=== PATIENT | female | born 1990 | race Asian ===

== ENCOUNTER 2017-04-19 12:14 | Observation (INO) | payer OTHER ==
[2017-04-19] MEDS ORDERED: ACETAMINOPHEN 325 MG TABLET PO PRN (13:23)
[2017-04-19] MEDS ORDERED: DIPHENHYDRAMINE HCL 25 MG CAPSULE PO PRN (13:23)
[2017-04-19 14:10] LABS: HEMOGLOBIN 9.1 g/dL (12.0-15.5); HGB HCT DIFFERENCE 0.3; MEAN CORPUSCULAR HEMOGLOBIN 29.9 pg (27.0-33.4); MEAN CORPUSCULAR HGB CONC 33.8 g/dL (32.0-36.0); MEAN CORPUSCULAR VOLUME 88 fl (80-97); RED BLOOD COUNT 3.06 10^6/uL (3.72-5.28); RED CELL DISTRIBUTION WIDTH 14.2 % (11.5-14.0); WHITE BLOOD COUNT 6.3 10^3/uL (4.0-10.5)
[2017-04-19 14:40] LABS: ALANINE AMINOTRANSFERASE 32 U/L (9-52); ALBUMIN 2.7 g/dL (3.5-5.0); ALKALINE PHOSPHATASE 164 U/L (38-126); ANION GAP 6 (5-19); ASPARTATE AMINO TRANSFERASE 24 U/L (14-36); BILIRUBIN,DIRECT 0.3 mg/dL (0.0-0.4); BILIRUBIN,TOTAL 0.6 mg/dL (0.2-1.3); BLOOD UREA NITROGEN 5 mg/dL (7-20); CALCIUM 8.2 mg/dL (8.4-10.2); CARBON DIOXIDE 26 mmol/L (22-30); CHLORIDE 105 mmol/L (98-107); CREATININE RESULT 0.48 mg/dL (0.52-1.25); GLUCOSE 98 mg/dL (75-110); POTASSIUM 3.3 mmol/L (3.6-5.0); SODIUM 136.6 mmol/L (137-145); TOTAL PROTEIN 5.5 g/dL (6.3-8.2)
[2017-04-19] MEDS ORDERED: OXYCODONE-ACETAMINOPHEN 5-325 MG TABLET PO PRN ×2 (14:41→14:42)
[2017-04-19] MEDS: AMPICILLIN SODIUM/SULBACTAM NA 3 GM in NORMAL SALINE 100 ML IV SCH ×2 (17:59→23:31)
[2017-04-19] MEDS: RINGERS SOLUTION,LACTATED 1,000 ML IV PRN ×3 (18:00→23:32)
[2017-04-20] MEDS ORDERED: DIPHENHYDRAMINE HCL 50 MG/ML VIAL IV ONE (04:45)
--- NOTE | 2017-04-20 05:36 | PDOC PROGRESS REPORT ---
Subjective Progress Note for:: 04/20/17 Subjective:: Generalized itching, rash over abd and chest, increasing edema. Physical Exam - Physical Exam Vital Signs: Temp Pulse Resp BP Pulse Ox 98.5 F 113 H 18 125/67 100 04/20/17 04:10 04/20/17 04:10 04/20/17 04:10 04/20/17 04:10 04/20/17 04:10 Intake & Output 04/18/17 04/19/17 04/20/17 06:59 06:59 06:59 Output Total 400 Balance -400 Weight 55.8 kg General appearance: PRESENT: no acute distress, well-developed, well-nourished Head exam: PRESENT: atraumatic, normocephalic Respiratory exam: PRESENT: clear to auscultation angelina, symmetrical, unlabored. ABSENT: retraction, rhonchi, stridor Cardiovascular exam: PRESENT: tachycardia. ABSENT: diastolic murmur, rubs, systolic murmur Pulses: PRESENT: normal dorsalis pedis pul, +2 pedal pulses bilateral Vascular exam: PRESENT: normal capillary refill GI/Abdominal exam: PRESENT: normal bowel sounds, soft, other - incision c/d/i. ABSENT: distended, guarding, mass, organolmegaly, rebound, tenderness Rectal exam: PRESENT: deferred Extremities exam: PRESENT: full ROM. ABSENT: calf tenderness, clubbing, pedal edema Neurological exam: PRESENT: alert, awake, oriented to person, oriented to place , oriented to time, oriented to situation, CN II-XII grossly intact. ABSENT: motor sensory deficit Psychiatric exam: PRESENT: appropriate affect, normal mood. ABSENT: homicidal ideation, suicidal ideation Skin exam: PRESENT: dry, intact, warm. ABSENT: cyanosis, rash Result Laboratory Results: 04/19/17 13:40 04/19/17 13:40 04/19/17 04/19/17 04/19/17 13:40 13:40 13:40 WBC 6.3 RBC 3.06 L Hgb 9.1 L Hct 27.0 L MCV 88 MCH 29.9 MCHC 33.8 RDW 14.2 H Plt Count 240 Sodium 136.6 L Potassium 3.3 L Chloride 105 Carbon Dioxide 26 Anion Gap 6 BUN 5 L Creatinine 0.48 L Est GFR ( Amer) > 60 Est GFR (Non-Af Amer) > 60 Glucose 98 Lactic Acid 1.8 Calcium 8.2 L Total Bilirubin 0.6 AST 24 ALT 32 Alkaline Phosphatase 164 H Total Protein 5.5 L Albumin 2.7 L Assessment & Plan - Diagnosis (1) Rheumatoid arthritis Qualifiers: Rheumatoid factor presence: unspecified presence Laterality: unspecified laterality Is this a current diagnosis for this admission?: Yes Plan: Pt recently from c/s on 04/16 after presenting in labor. SHe has known RA and was recommended to go home on prednisone. She was discharged on Sunday. She presented to the office and saw Dr. Torres yesterday who readmitted the patient due to possible pp endomyometritis - presenting symptom was rash and fever. Incision was c/d/i and no e/o erythema or induration. However pt had a rash on abd (not involving incision) and chest. 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 I requested the RN give her IV Benadryl and prednisone (was on 5mg but admitting provider asked pt to stop medication). Pt and in the room and attempted to explain the importance of anti- inflammatory to stop reaction (either to meds or beginning of other inflammatory process such as SJS). They refuse all medications. Called Hospitalist for consult and 2nd opinion - because if this is the beginning of SJS then we need to transfer her to tertiary care facility. Pt and state they never actually followed up with [facility]in [facility] here - they were only seen in [facility] before they moved here. Of note this hospital does not have a [facility] or Derm to see patient. (2) Delivery by emergency caesarean section Is this a current diagnosis for this admission?: Yes Plan: S/p Primary C/S on Monday 04/16 for Arrest of Dilation and NRFHTs - Time Time Spent with patient: 15-24 minutes Medications reviewed and adjusted accordingly: Yes Anticipated discharge: Home Within: within 48 hours - Inpatient Certification Based on my medical assessment, after consideration of the patient's comorbidities, presenting symptoms, or acuity I expect that the services needed warrant INPATIENT care.: Yes I certify that my determination is in accordance with my understanding of Medicare's requirements for reasonable and necessary INPATIENT services [42 CFR 412.3e].: Yes Medical Necessity: Need Close Monitoring Due to Risk of Patient Decompensation, Risk of Complication if Not Cared For in Hospital Post Hospital Care: D/C Director Of Ancillary Services Documentation
[2017-04-20] MEDS: AMPICILLIN SODIUM/SULBACTAM NA 3 GM in NORMAL SALINE 100 ML IV SCH (06:07)
--- NOTE | 2017-04-20 06:59 | PDOC CONSULTATION ---
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 Patient has been discussed with consulting physician, Dr. Yuki Fraga, staff skeins yarn examiner, who evaluated the patient. Patient is status post on Sunday of this week. Received a perioperative dose of Ancef. Discharged home 2 days later. Was seen back in the office yesterday by Dr Torres, with complaints of fever. Suspicion at that time a possible endometritis. Patient has since received 2 doses of Unasyn. Over the last several hours, patient has been complaining of mild swelling of her limbs, slight reddening of the skin, in particular on her abdomen and extremities, continued low-grade fever, and now generalized pruritus. Patient states this is quite similar to the presentation that preceded her episode of Freeman-Gideon syndrome last year. Dr. Fraga has recommended both Benadryl and initially IV and then p.o. steroids to the patient. However, patient has steadfastly refused these medications. Hospitalist service consulted concerning the etiology of her rash and complaints. Dictation via voice recognition software. Laboratory results are listed in [facility] and are reviewed. Repeat labs ordered. Social history/personal habits: . 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 No use of alcohol tobacco or illicit drugs. Allergies/adverse reactions are listed in [facility] and are reviewed. Home medications initially autopopulated into [employer] may not accurately reflect patient's true medications, dosages, and/or frequencies. operating room surgical technologist to reconcile medications. Patient states she currently is only taking prednisone 5 mg a day, along with vitamins. REVIEW OF SYSTEMS: Constitutional: See history and present illness. Eyes: No vision complaints. ENT: No swallowing problems or complaints. Denies hearing loss. Pulmonary: No current complaints. Cardiovascular: No current complaints, including chest pain. Gastrointestinal: No current complaints, including nausea or vomiting. Skin: See history and present illness. Hematologic: Denies easy bruising. Neurologic: No current complaints, including numbness or tingling. Musculoskeletal: See history and present illness. Psychiatric: Denies anxiety or depression. Endocrine: No current complaints, including polyuria. Genitourinary: No current complaints, including dysuria. PHYSICAL EXAMINATION: 5 feet 3 inches tall. 55.8 kg. BMI 21.8 kg/m. Temperature 98.5. Temperature maximum 99.4 at 3:18 PM yesterday afternoon. Pulse 113 and regular. Blood pressure 125/67. Respirations are 18 and unlabored. 100% saturation on room air. Well-nourished well-developed young [place] female appearing approximately her stated age. Pleasant awake alert and cooperative, although appears slightly fatigued, and to feel a bit under the weather, so to speak. Mildly anxious, without agitation. is present at her side; patient approves. Patient understands Liberian well, speaks same relatively easily, with occasionally interpreting terms/phrases for patient. speaks/understands Liberian without difficulty. Female floor nurse Violetta is present, along with visit by Dr. Fraga. Skin is warm and dry. No subcutaneous nodules palpated. Examination of skin surfaces reveals mild erythema involving the anterior abdominal wall, less so on the extensor surfaces of lower extremities and flexor surfaces of the upper extremities. Much less involvement of the skin of back. No blisters or wheals. No nodules. Scattered small areas of excoriation from patient scratching. ENT: Hearing grossly normal to normal conversation. Tongue midline on protrusion pink and slightly tacky. No evidence of mucocutaneous involvement with rash in nose or oral cavity. Perhaps very mild facial swelling, confirmed by Dr. Fraga. Eyes: No scleral icterus. Pupils equal and reactive to light at 4 mm. [place] conjunctivae. Neck is supple and nontender to gentle active range of motion and palpation. Midline trachea. No palpable thyroid nodule mass enlargement or tenderness. Lymphatic: No palpable cervical or clavicular nodes. Neck and lymphatic exams limited by patient body habitus. Psychiatric: Reasonable insight into acute and chronic medical issues. Oriented to time location and why here. Lungs: Auscultation reveals clear and equal breath sounds bilaterally. No use of accessory respiratory muscles. Cardiovascular: Heart regular rate and rhythm, without gallop murmur or rub. No carotid or abdominal aortic bruits. No ankle or pedal edema. Faintly palpable dorsalis pedis pulses. Abdomen:soft slightly distended nontender with positive bowel sounds. Unable to adequately evaluate abdomen for masses or organomegaly due to distention. C- section incision with Steri-Strips in place appears to be healing nicely. Extremities: Feet are warm and dry. No calf tenderness to compression. Gentle manipulation of lower extremities fails to reveal any obvious evidence of injury or instability to knees hips or ankles. Very mild soft tissue swelling of upper and lower extremities, again confirmed by Dr. Fraga. Neurologic: Moves all 4 extremities grossly normally. Patellar reflexes absent. Absent Babinski. Light touch is intact at feet. Dorsiflexion and plantarflexion of feet 5 / 5 and symmetric. Past Medical History Cardiac Medical History: Denies: Atrial Fibrillation, Congestive Heart Failure, Coronary Artery Disease, DVT, Myocardial Infarction, Hyperlipidema, Hypertension, Pulmonary Embolism Pulmonary Medical History: Denies: Asthma, Chronic Obstructive Pulmonary Disease (COPD), Sleep Apnea EENT Medical History: Denies: Eyes, Ears, Throat Neurological Medical History: Denies: Hemorrhagic CVA, Ischemic CVA, Seizures Endocrine Medical History: Denies: Diabetes Mellitus Type 1, Diabetes Mellitus Type 2, Hyperthyroidism, Hypothyroidism Renal/ Medical History: Reports: None GI Medical History: Denies: Cirrhosis, Gastroesophageal Reflux Disease, Hepatitis, Peptic Ulcer Disease Musculoskeltal Medical History: Reports: Arthritis - Rheumatoid Skin Medical History: Reports: Other - Freeman-Gideon syndrome, secondary to sulfa, February 2016 Psychiatric Medical History: Denies: Alcohol Dependency, Depression, General Anxiety Disorder, Substance Abuse, Tobacco Dependency Hematology: Reports: None Infectious Medical History: Denies: Hepatitis B, Hepatitis C Past Surgical History Past Surgical History: Reports: Section Social History Information Source: Patient, Emergency Med Personnel, [facility] Records Lives with: Spouse/Significant other Smoking Status: Unknown if Ever Smoked Frequency of Alcohol Use: None Hx Recreational Drug Use: No Drugs: None Hx Prescription Drug Abuse: No - Advance Directive Resuscitation Status: Full Code Surrogate healthcare decision maker:: Family History Parental Family History Reviewed: Yes - Parents alive and healthy Children Family History Reviewed: Yes - Healthy Sibling(s) Family History Reviewed.: Yes - Healthy Medication/Allergy Home Medications: RX: Pnv No.122/Iron/Folic Acid [ Multi Tablet] 1 each PO DAILY 04/16/17 RX: Docusate Sodium [Colace 100 mg Capsule] 100 mg PO BID #60 capsule 04/18/17 RX: Ibuprofen [Motrin 800 mg Tablet] 800 mg PO Q6A #60 tablet 04/18/17 RX: Oxycodone HCl/Acetaminophen [Percocet 5-325 mg Tablet] 2 tab PO Q4HP PRN # 30 tablet 04/18/17 Allergies/Adverse Reactions: sulfasalazine [From Azulfidine] Allergy (Severe, Verified 04/19/17 21:37) Physical Exam Vital Signs: Temp Pulse Resp BP Pulse Ox 98.5 F 113 H 18 125/67 100 04/20/17 04:10 04/20/17 04:10 04/20/17 04:10 04/20/17 04:10 04/20/17 04:10 Intake & Output 04/19/17 04/20/17 04/21/17 00:59 00:59 00:59 Output Total 400 900 Balance -400 -900 Weight 55.8 kg Results Laboratory Results: 04/19/17 13:40 04/19/17 13:40 04/19/17 04/19/17 04/19/17 13:40 13:40 13:40 WBC 6.3 RBC 3.06 L Hgb 9.1 L Hct 27.0 L MCV 88 MCH 29.9 MCHC 33.8 RDW 14.2 H Plt Count 240 Sodium 136.6 L Potassium 3.3 L Chloride 105 Carbon Dioxide 26 Anion Gap 6 BUN 5 L Creatinine 0.48 L Est GFR ( Amer) > 60 Est GFR (Non-Af Amer) > 60 Glucose 98 Lactic Acid 1.8 Calcium 8.2 L Total Bilirubin 0.6 AST 24 ALT 32 Alkaline Phosphatase 164 H Total Protein 5.5 L Albumin 2.7 L Assessment & Plan - Diagnosis (1) Immunosuppressed status Is this a current diagnosis for this admission?: Yes (2) Noncompliance Is this a current diagnosis for this admission?: Yes (3) History of Freeman-Gideon toxic epidermal necrolysis overlap syndrome Is this a current diagnosis for this admission?: Yes (4) Fever Qualifiers: Fever type: unspecified Qualified Code(s): R50.9 - Fever, unspecified Is this a current diagnosis for this admission?: Yes (5) Pruritus Is this a current diagnosis for this admission?: Yes (6) Rash Is this a current diagnosis for this admission?: Yes Plan: Suspicion for possible early Freeman-Gideon syndrome, confirmed by both patient , along with Dr. Fraga, who has managed similar patients in the past. Patient still resistant to taking both steroids and Benadryl. Dr. Fraga stated she will contact the appropriate service at [facility] for further advice and input. Repeat labs ordered this morning. Blood and urine cultures have already been obtained. 50 minutes spent in evaluation management of patient. (7) Rheumatoid arthritis Qualifiers: Rheumatoid factor presence: unspecified presence Laterality: unspecified laterality Is this a current diagnosis for this admission?: Yes - Plan Summary Plan Summary: Thank you for asking us see this unfortunate patient. We will follow-up morning labs and overall course.
[2017-04-20 07:09] LABS: ALANINE AMINOTRANSFERASE 27 U/L (9-52); ALBUMIN 2.3 g/dL (3.5-5.0); ALKALINE PHOSPHATASE 126 U/L (38-126); ASPARTATE AMINO TRANSFERASE 19 U/L (14-36); BILIRUBIN,DIRECT 0.3 mg/dL (0.0-0.4); BILIRUBIN,TOTAL 0.7 mg/dL (0.2-1.3); BLOOD UREA NITROGEN 6 mg/dL (7-20); CALCIUM 8.1 mg/dL (8.4-10.2); CHLORIDE 107 mmol/L (98-107); CREATININE RESULT 0.42 mg/dL (0.52-1.25); GLUCOSE 88 mg/dL (75-110); MAGNESIUM 1.4 mg/dL (1.6-2.3); POTASSIUM 3.1 mmol/L (3.6-5.0); TOTAL PROTEIN 4.8 g/dL (6.3-8.2)
[2017-04-20 07:17] LABS: ANION GAP 5 (5-19); CARBON DIOXIDE 27 mmol/L (22-30); SODIUM 138.9 mmol/L (137-145)
[2017-04-20 07:22] LABS: HEMATOCRIT 26.8 % (36.0-47.0); HEMOGLOBIN 9.2 g/dL (12.0-15.5); HGB HCT DIFFERENCE 0.8; MEAN CORPUSCULAR HGB CONC 34.3 g/dL (32.0-36.0); MEAN CORPUSCULAR VOLUME 88 fl (80-97); RED BLOOD COUNT 3.07 10^6/uL (3.72-5.28); RED CELL DISTRIBUTION WIDTH 14.2 % (11.5-14.0); WHITE BLOOD COUNT 5.6 10^3/uL (4.0-10.5)
[2017-04-20 07:37] LABS: BAND NEUTROPHILS % (MANUAL) 3 % (3-5); BASOPHILS % (MANUAL) 0 % (0-2); EOSINOPHILS % (MANUAL) 4 % (0-6); LYMPHOCYTES % (MANUAL) 7 % (13-45); NUCLEATED RED BLOOD CELLS 1 /100 WBC (0); TOTAL CELLS COUNTED 100
[2017-04-20 07:39] LABS: OVALOCYTES SLIGHT; POIKILOCYTOSIS SLIGHT; TEAR DROP CELLS SLIGHT
[2017-04-20] MEDS ORDERED: POTASSIUM CHLORIDE 10 MEQ TABLET.SA PO ONE (07:49)
[2017-04-20] MEDS ORDERED: HYDROCORTISONE 1% CREAM 28.35 GM TP PRN (08:51)
--- NOTE | 2017-04-20 16:02 | PDOC DISCHARGE SUMMARY ---
General - Admit/Disc Date/PCP Admission Date/Primary Care Provider: 04/19/17 12:14 Discharge Date: 04/20/17 - Discharge Diagnosis (1) Pruritus Is this a current diagnosis for this admission?: Yes (2) Rash Is this a current diagnosis for this admission?: Yes (3) History of Freeman-Gideon toxic epidermal necrolysis overlap syndrome Is this a current diagnosis for this admission?: Yes (4) Rheumatoid arthritis Is this a current diagnosis for this admission?: Yes - Additional Information Resuscitation Status: Full Code Home Medications: Pnv No.122/Iron/Folic Acid [ Multi Tablet] 1 each PO DAILY 04/16/17 Docusate Sodium [Colace 100 mg Capsule] 100 mg PO BID #60 capsule 04/18/17 Ibuprofen [Motrin 800 mg Tablet] 800 mg PO Q6A #60 tablet 04/18/17 Oxycodone HCl/Acetaminophen [Percocet 5-325 mg Tablet] 2 tab PO Q4HP PRN #30 tablet 04/18/17 History of Present Illness History of Present Illness: LESLIE RUBALCAVA is a 26 year old female Hospital Course Hospital Course: unasyn stopped d/t rash development. patient started on hydrocortisone cream today and did well with quick resolution of rash and puritis. Requesting discharge home. Indicates feeling much better than prior to admission. Physical Exam - Physical Exam Vital Signs: Temp Pulse Resp BP Pulse Ox 99.4 F 115 H 18 129/78 H 100 04/20/17 15:41 04/20/17 15:41 04/20/17 15:41 04/20/17 15:41 04/20/17 15:41 Intake & Output 04/19/17 04/20/17 04/21/17 06:59 06:59 06:59 Output Total 1300 Balance -1300 Weight 55.8 kg General appearance: PRESENT: no acute distress Head exam: PRESENT: atraumatic Mouth exam: PRESENT: moist - no mucosal blisters present GI/Abdominal exam: PRESENT: soft, other - incision is c/d/intact with no drainage. healing well. rash significantly diminished from earlier exam. Result Laboratory Results: 04/20/17 06:47 04/20/17 06:47 04/20/17 04/20/17 06:47 06:47 WBC 5.6 RBC 3.07 L Hgb 9.2 L Hct 26.8 L MCV 88 MCH 30.0 MCHC 34.3 RDW 14.2 H Plt Count 195 Seg Neutrophils % Not Reportable Lymphocytes % Not Reportable Monocytes % Not Reportable Eosinophils % Not Reportable Basophils % Not Reportable Absolute Neutrophils Not Reportable Absolute Lymphocytes Not Reportable Absolute Monocytes Not Reportable Absolute Eosinophils Not Reportable Absolute Basophils Not Reportable Sodium 138.9 Potassium 3.1 L Chloride 107 Carbon Dioxide 27 Anion Gap 5 BUN 6 L Creatinine 0.42 L Est GFR ( Amer) > 60 Est GFR (Non-Af Amer) > 60 Glucose 88 Calcium 8.1 L Magnesium 1.4 L Total Bilirubin 0.7 AST 19 ALT 27 Alkaline Phosphatase 126 Total Protein 4.8 L Albumin 2.3 L Plan Discharge Plan: will discharge home and have patient continue with her home meds of prednisone for her RA. Will f/u in office in 1 weeks. Time Spent: Greater than 30 Minutes
[2017-04-20 16:16] VITALS: BP 115/64
== END 2017-04-20 17:28 | disposition home or self-care (01) ==
LOC: 2N 12:14
PROVIDERS: ADMIT Student in an Organized Health Care Education/Training Program; ATTEND Student in an Organized Health Care Education/Training Program
DX: O90.89 Other complications of the puerperium, not elsewhere classified (principal); L29.9 Pruritus, unspecified; R21 Rash and other nonspecific skin eruption; M06.9 Rheumatoid arthritis, unspecified; O86.4 Pyrexia of unknown origin following delivery; M79.89 Other specified soft tissue disorders; D89.9 Disorder involving the immune mechanism, unspecified; R60.9 Edema, unspecified; R00.0 Tachycardia, unspecified; Z87.2 Personal history of diseases of the skin and subcutaneous tissue; Z88.2 Allergy status to sulfonamides; Z91.19 Patient's noncompliance with other medical treatment and regimen
CPT/HCPCS: 36415 ×2; 87040; 87086; 83605; 83735; 85025; 85027; 80053 ×2; G0378 ×2; G0379; J0295; J3490; J7120

== ENCOUNTER 2018-04-12 06:18 | Emergency (ER) | payer OTHER ==
--- NOTE | 2018-04-12 06:39 | ER Document Report ---
ED General Pain - General Chief Complaint: Pain All Over Stated Complaint: PAIN,ARTHRITIS FLARE Time Seen by Provider: 04/12/18 06:35 Notes: 27-year-old female patient to the emergency department chief complaint of pain all over. Patient has a long-standing history of rheumatoid arthritis. Currently on medications for that. Seems to be getting worse. Has pain in her bilateral hands as well as her feet. Having a hard time walking due to the pain. Denies any fever, chills, sweats. Denies any chest pain or shortness of breath. Last menstrual period 2 days ago. TRAVEL OUTSIDE OF THE [place] IN LAST 30 DAYS: No - HPI Quality of pain: Throbbing Severity: Moderate Pain Level: 3 - Related Data Allergies/Adverse Reactions: sulfasalazine [From Azulfidine] Allergy (Severe, Verified 04/19/17 21:37) Past Medical History - General Information source: Patient - Social History Smoking Status: Never Smoker Cigarette use (# per day): No Frequency of alcohol use: None Drug Abuse: None Lives with: Spouse/Significant other Family History: Reviewed & Not Pertinent - Past Medical History Cardiac Medical History: Denies: Hx Atrial Fibrillation, Hx Congestive Heart Failure, Hx Coronary Artery Disease, Hx DVT, Hx Heart Attack, Hx Hypercholesterolemia, Hx Hypertension, Hx Pulmonary Embolism Pulmonary Medical History: Denies: Hx Asthma, Hx COPD, Hx Sleep Apnea Neurological Medical History: Denies: Hx Seizures Endocrine Medical History: Denies: Hx Diabetes Mellitus Type 1, Hx Diabetes Mellitus Type 2, Hx Hyperthyroidism, Hx Hypothyroidism GI Medical History: Denies: Hx Cirrhosis, Hx Gastroesophageal Reflux Disease, Hx Hepatitis Musculoskeletal Medical History: Reports Hx Arthritis - Rheumatoid Psychiatric Medical History: Denies: Hx Depression Infectious Medical History: Denies: Hx Hepatitis Past Surgical History: Reports: Hx Section Review of Systems - Review of Systems Notes: Constitutional: denies: Chills, Diaphoresis, Fever, Malaise, Weakness EENT: denies: Eye discharge, Blurred vision, Tearing, Double vision, Nose congestion, Nose discharge, Throat swelling, Mouth pain Cardiovascular: denies: Palpitations, Heart racing, Orthopnea, Dyspnea, Chest pain Respiratory: denies: Cough, Hurts to breathe, Wheezing, Shortness of breath Gastrointestinal: denies: Abdominal pain, Diarrhea, Nausea, Vomiting, Black stools, bright red blood in stool Genitourinary: denies: Burning, Dysuria, Discharge, Frequency, Flank pain, Hematuria Musculoskeletal: Complaining of joint pain in the wrists, hands, fingers, ankles , feet, knees Hematologic/Lymphatic: denies: Anemia, Easy bleeding, Easy bruising, Blood clots Neurological/Psychological: denies: Confusion, Dementia, Depression, Loss of consciousness Skin: No lesions, no masses, no skin breakdown, no abscesses Physical Exam - Vital signs Vitals: Temp Pulse Resp BP Pulse Ox 97.9 F 84 16 114/73 100 04/12/18 06:21 04/12/18 06:21 04/12/18 06:21 04/12/18 06:21 04/12/18 06:21 Interpretation: Normal - General General appearance: Appears well, Alert - HEENT Head: Normocephalic, Atraumatic Eyes: Normal Pupils: PERRL - Respiratory Respiratory status: No respiratory distress Chest status: Nontender Breath sounds: Normal Chest palpation: Normal - Cardiovascular Rhythm: Regular Heart sounds: Normal auscultation Murmur: No - Abdominal Inspection: Normal Distension: No distension Bowel sounds: Normal Tenderness: Nontender Organomegaly: No organomegaly - Back Back: Normal, Nontender - Extremities General upper extremity: Other - Normal in appearance. Normal and temperature. There is some tenderness to palpation bilateral wrists and multiple joints on the bilateral hands. No sign of redness or swelling. General lower extremity: Other - The bilateral knees are mildly tender to palpation but no significant effusions. Bilateral ankles with mild tenderness to palpation. No surrounding erythema. No significant edema or effusions. No signs of cellulitis.. No: Jenn's sign - Neurological Neuro grossly intact: Yes Cognition: Normal Orientation: AAOx4 Chris Coma Scale Eye Opening: Spontaneous Chris Coma Scale Verbal: Oriented [place] Coma Scale Motor: Obeys Commands Chris Coma Scale Total: 15 Speech: Normal Motor strength normal: LUE, RUE, LLE, RLE Sensory: Normal - Psychological Associated symptoms: Normal affect, Normal mood - Skin Skin Temperature: Warm Skin Moisture: Dry Skin Color: Normal Course - Re-evaluation Re-evalutation: 04/12/18 07:46 At this time I have given her a shot of Toradol and a dose of prednisone. Will place her on a Solu-Medrol Dosepak. I have advised her to follow-up with her chemical sprayer for medication changes. - Vital Signs Vital signs: Temp Pulse Resp BP Pulse Ox 97.9 F 84 16 114/73 100 04/12/18 06:21 04/12/18 06:21 04/12/18 06:21 04/12/18 06:21 04/12/18 06:21 Discharge - Discharge Clinical Impression: Rheumatoid arthritis flare Condition: Good Disposition: HOME, SELF-CARE Instructions: Rheumatoid Arthritis ([facility]) Additional Instructions: Please follow-up with your chemical sprayer as soon as possible. Return for any worsening symptoms or concerns. Prescriptions: Methylprednisolone [Medrol Dosepack (4 mg/Tab) 21 Tab/Dosepak] 21 tab PO DAILY 7 Days #1 dspk Ranitidine HCl [Zantac] 150 mg PO BID 10 Days #20 tablet
[2018-04-12] MEDS ORDERED: KETOROLAC TROMETHAMINE 60 MG/2 ML SDV IM ONE (06:50)
[2018-04-12] MEDS ORDERED: PREDNISONE 20 MG TABLET PO ONE (06:51)
[2018-04-12 07:45] VITALS: BP 111/68
== END 2018-04-12 07:44 | disposition home or self-care (01) ==
LOC: ER 06:18
DX: M06.9 Rheumatoid arthritis, unspecified (principal); Z79.899 Other long term (current) drug therapy; Z88.8 Allergy status to other drugs, medicaments and biological substances
CPT/HCPCS: 99283; 96372; J1885; J7512

== ENCOUNTER 2018-06-23 22:50 | Emergency (ER) | payer OTHER ==
[2018-06-23] MEDS ORDERED: DEXAMETHASONE SOD PHOS INJ 10 MG/1 ML VIAL IM ONE (23:55)
[2018-06-23] MEDS ORDERED: IBUPROFEN 600 MG TABLET PO ONE (23:55)
--- NOTE | 2018-06-24 | ER Document Report ---
HPI - HPI Patient complains to provider of: r/a flare Onset: Yesterday Onset/Duration: Intermittent Quality of pain: Achy, Burning Severity: Moderate Pain Level: 4 Associated Symptoms: Other - Flare of rheumatoid arthritis in right hand Exacerbated by: Movement Relieved by: Denies Similar symptoms previously: Yes Recently seen / treated by doctor: No - ROS ROS below otherwise negative: Yes - CONSTITUTIONAL Constitutional: DENIES: Fever, Chills - EENT EENT: DENIES: Sore Throat, Ear Pain, Nasal Drainage-Clear, Nasal Drainage- Purulent, Congestion, Eye problems - NEURO Neurology: DENIES: Headache, Weakness, Vision blurred, Dizzinesss / Vertigo - CARDIOVASCULAR Cardiovascular: DENIES: Chest pain - RESPIRATORY Respiratory: DENIES: Trouble Breathing, Coughing - GASTROINTESTINAL Gastrointestinal: DENIES: Abdominal Pain, Nausea, Patient vomiting, Diarrhea, Constipation, Black / Bloody Stools - URINARY Urinary: DENIES: Dysuria, Urgency, Frequency - REPRODUCTIVE Reproductive: DENIES: :, Postmenopausal, Abnormal bleeding / discharge - MUSCULOSKELETAL Musculoskeletal: REPORTS: Extremity pain - rt hand pain. DENIES: Back Pain, Neck Pain, Swelling - DERM Skin Color: Normal Skin Problems: None Past Medical History - General Information source: Patient - Social History Smoking Status: Never Smoker Cigarette use (# per day): No Chew tobacco use (# tins/day): No Smoking Education Provided: No Frequency of alcohol use: None Drug Abuse: None Lives with: Family Family History: Reviewed & Not Pertinent Patient has suicidal ideation: No Patient has homicidal ideation: No - Past Medical History Cardiac Medical History: Reports: None Pulmonary Medical History: Reports: None EENT Medical History: Reports: None Neurological Medical History: Reports: None Endocrine Medical History: Reports: None Renal/ Medical History: Reports: None Malignancy Medical History: Reports: None GI Medical History: Reports: None Musculoskeletal Medical History: Reports Hx Arthritis - Rheumatoid Skin Medical History: Reports None Psychiatric Medical History: Reports: None Traumatic Medical History: Reports: None Infectious Medical History: Reports: None Past Surgical History: Reports: Hx Section - Immunizations Immunizations up to date: Yes Vertical Provider Document - CONSTITUTIONAL Agree With Documented VS: Yes Exam Limitations: No Limitations General Appearance: WD/WN - INFECTION CONTROL TRAVEL OUTSIDE OF THE [place] IN LAST 30 DAYS: No - HEENT HEENT: Atraumatic, Normal ENT Exam, Normocephalic, PERRLA - NECK Neck: Normal Inspection, Supple - RESPIRATORY Respiratory: Breath Sounds Normal, No Respiratory Distress - CARDIOVASCULAR Cardiovascular: Regular Rate, Regular Rhythm - BACK Back: Normal Inspection - MUSCULOSKELETAL/EXTREMETIES Musculoskeletal/Extremeties: Tender - right hand. negative: FROM - due to pain , No Edema - NEURO Level of Consciousness: Awake, Alert, Appropriate - DERM Integumentary: Warm, Dry, No Rash Course - Re-evaluation Re-evalutation: 06/24/18 01:25 Patient was treated with dexamethasone IM and ibuprofen for her chronic pain to the right hand from her rheumatoid arthritis. 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 Patient states she took methotrexate in the past which helped but she decided she wanted shoulder so they took her off of that and are not going to start her back on it until she has finished having children. Patient tolerated medications well and will follow-up as instructed. - Vital Signs Vital signs: Temp Pulse Resp BP Pulse Ox 98.3 F 87 18 116/70 100 06/23/18 23:01 06/23/18 23:01 06/23/18 23:01 06/23/18 23:01 06/23/18 23:01 Discharge - Discharge Clinical Impression: Rheumatoid arthritis flare to the right Condition: Stable Disposition: HOME, SELF-CARE Additional Instructions: Rheumatoid Arthritis Your symptoms are due to rheumatoid arthritis. This is an inflammation of the joints caused by your body's immune system. We don't know why rheumatoid arthritis occurs. The hands, feet, and knees are most often involved. Joints become swollen , stiff, and tender. Rheumatoid arthritis often has other symptoms such as low- grade fever, fatigue, and anemia (low red blood cell count). Arthritis is treated with antiinflammatory medication. We usually start with a non-steroid medicine such as ibuprofen or one of its relatives. The symptoms may spontaneously get better or worse from time to time. There is no permanent cure. Stronger antiinflammatory medicines may be added if the symptoms worsen. This can include cortisone medication, gold shots, immune suppressants, and other types of antiinflammatory medicine. Local warmth may be helpful. Move the involved joints through the full range of motion daily. Mild exercise is usually still possible for most persons with arthritis (ask your physician). Swimming provides good exercise without damaging the joints. Contact the physician if you are worsening in any way. STEROID MEDICATION: You have been given an injection of medicine of the cortisone/steroid class. This medication is used to control inflammation or allergy. It is often continued as a pill for a short period of time, until the acute process subsides. There are usually no side effects from short-term use of cortisone-like medications. Some persons feel an increased sense of well-being and are not sleepy at bedtime. Long-term use of cortisone medications is best avoided, unless required for a severe condition. If your condition does not remit, or relapses after the course of corticosteroid medication, you should consult your physician. Ibuprofen Ibuprofen is an excellent, safe drug for pain control. In addition, it has potent antiinflammatory effects which are beneficial, especially in the treatment of injuries, arthritis, or tendonitis. It's best to take ibuprofen with food. Persons with ulcer disease or allergy to aspirin should notify their physician of this before taking ibuprofen. Take the medication exactly as prescribed. Don't take additional doses unless instructed to do so by your doctor. If you develop wheezing, shortness of breath, hives, faintness, stomach pain, vomiting, or dark black stools, return for re-evaluation at once. FOLLOW-UP CARE: If you have been referred to a physician for follow-up care, call the physician s office for an appointment as you were instructed or within the next two days. If you experience worsening or a significant change in your symptoms, notify the physician immediately or return to the Emergency Department at any time for re-evaluation. Prescriptions: Ibuprofen 600 mg PO Q8HP PRN #20 tablet PRN Reason: Referrals: AMINTA CERVANTES MD [ACTIVE STAFF] - Follow up tomorrow
[2018-06-24 01:29] VITALS: BP 124/62
== END 2018-06-24 01:29 | disposition home or self-care (01) ==
LOC: ER 22:50
DX: M06.9 Rheumatoid arthritis, unspecified (principal)
CPT/HCPCS: 99283; 96372; J1100